=== PATIENT | female | born 1940 | race Caucasian/White ===

== ENCOUNTER 2017-01-25 15:56 | Inpatient (IN) | payer OTHER ==
[~2017-01-25] VITALS: Ht 148.6 cm; Wt 75.3 kg
[~2017-01-25 15:56] MED LIST: ALTACE2.5 MG PO; Ativan PO; Augmentin PO; CARDIZEM CD,CA240 M1 PO; CIPRO500 MG PO; CIPROFLOXACIN500 M1 PO; Cardizem CD,Cartia X PO; DILTIAZEM 24HR240 MG PO; FENOFIBRATE200 M1 PO; FENOFIBRATE200 MG PO; GLIPIZIDE5 M1 PO; GLIPIZIDE5 MG PO; GLUCOPHAGE1000 M1 PO; JANUVIA100 MG PO; LASIX20 MG PO; LASIX40 MG PO; Lasix PO; Lotrel 5/10 PO; MELOXICAM7.5 MG PO; METFORMIN HCL1000 MG PO; METOPROLOL TAR100 MG PO; NORVASC10 MG PO; OMEPRAZOLE40 M1 PO; PREDNISONE PO; PRILOSEC40 MG PO; Phenergan W/Codeine PO; SIMVASTATIN10 MG PO; Symbicort 160-4.5 mc IH; TOPROL XL50 MG PO; TRAMADOL HCL50 MG PO; Toprol XL PO; ULTRAM50 MG PO; VICODIN 5-3001 EACH PO; ZETIA10 MG PO; ZOFRAN4 MG PO
[2017-01-25 16:53] LABS: HEMATOCRIT 24.5 % (36.0-46.0); MCH 31.8 PG (29.0-34.0); MCHC 31.4 G/DL (30.0-36.0); MCV 101.2 FL (83-99); NRBC (%) 0.2 /100 WBC (0-0); PLATELET COUNT 140 K/uL (156-360); RBC DIS.WIDTH-CV 20.1 % (11.8-14.6); RBC DIS.WIDTH-SD 74.5 % (39-53); RED BLOOD COUNT 2.42 M/uL (3.80-5.20); WHITE BLOOD COUNT 9.4 K/uL (4.1-10.2)
[2017-01-25 17:03] LABS: CHLORIDE 103 mEq/L (99-109); POTASSIUM 3.5 mEq/L (3.7-5.4); SODIUM 138 mEq/L (136-147)
[2017-01-25 17:04] LABS: MAGNESIUM 1.5 mg/dL (1.3-2.7)
[2017-01-25 17:05] LABS: GLUCOSE 139 mg/dL (70-99)
[2017-01-25 17:07] LABS: ANION GAP 10 MEQ/L (2-14); TOTAL BILIRUBIN 0.7 mg/dL (0.0-1.0)
[2017-01-25 17:09] LABS: ALKALINE PHOSPHATASE 44 IU/L (3-129); GFR ESTIMATE (CALCULATED) > 59 mL/min/
[2017-01-25 17:10] LABS: UREA NITROGEN (BUN) 20 mg/dL (9-23)
[2017-01-25 17:14] LABS: TROP-I INTERPRETATION NEGATIVE; TROPONIN-I < 0.01 ng/mL (0.0-0.30)
[2017-01-25 17:49] LABS: ADD MIUA? YES; BILIRUBIN NEGATIVE; BLOOD SMALL; COLOR YELLOW ((YELLOW)); GLUCOSE (STRIP) NEGATIVE; KETONES NEGATIVE; LEUKOCYTES NEGATIVE; NITRITE NEGATIVE; PROTEIN (STRIP) >=500; SPECIFIC GRAVITY 1.012 (1.000-1.030); UROBILINOGEN 0.2 MG/DL (0.2-1.0)
[2017-01-25 17:55] LABS: BACTERIA RARE /HPF; EPITHELIAL CELLS RARE /HPF; HYALINE CASTS 0-5 /LPF; MUCUS NONE SEEN /LPF; RED BLOOD CELLS 0-5 /HPF (0-5); UCUL ADDED? NO; WHITE BLOOD CELLS 0-5 /HPF (0-5)
[2017-01-25 18:05] LABS: ABS NEUTROPHIL COUNT 5.2; ANISOCYTOSIS 2+; ATYPICAL LYMPHOCYTE 1.7 %; BAND NEUTROPHILS 0.9 % (0-8.0); EOSINOPHIL ABS CT 0; HYPOCHROMASIA 3+; INSTRUMENT ABS NEUTROPHIL CT 4.5 K/uL; LYMPHOCYTES 8.8 % (15.0-45.0); MACROCYTES 1+; METAMYELOCYTES 1.7 %; MICROCYTOSIS 1+; MYELOCYTES 0.9 %; NUCLEATED RBC'S 1.8; PLAT.SUFFICIENCY ADEQUATE; POIKILOCYTOSIS 1+; SEG.NEUTROPHILS 54.4 % (46.0-76.0); STOMATOCYTES 1+; TOX.VACUOLIZATION 1+
[2017-01-25] MEDS ORDERED: GLIPIZIDE ER2.5 MG PO (20:34)
[2017-01-25] MEDS ORDERED: COZAAR25 MG PO (20:34)
[2017-01-25] MEDS ORDERED: ERGOCALCIF50000 UNIT PO (20:34)
[2017-01-25] MEDS ORDERED: ALPRAZOLAM0.25 M2 PO (20:34)
[2017-01-25] MEDS ORDERED: MELOXICAM7.5 MG PO (20:35)
[2017-01-25 23:11] LABS: TROP-I INTERPRETATION NEGATIVE; TROPONIN-I 0.01 ng/mL (0.0-0.30)
[2017-01-26] VITALS (11 sets, daily range): BP systolic 122–159; BP diastolic 60–74
[2017-01-26 02:00] LABS: IRON 33 MCG/DL (35-150)
[2017-01-26 02:37] LABS: INTER. NORMALIZED RATIO 1.3; PROTHROMBIN TIME 14.6 SEC (10.2-12.9)
[2017-01-26 02:40] LABS: PTT 27.8 SEC (25-37)
[2017-01-26 05:47] LABS: TROP-I INTERPRETATION NEGATIVE; TROPONIN-I 0.03 ng/mL (0.0-0.30)
[2017-01-26 06:03] LABS: ANION GAP 9 MEQ/L (2-14); CHLORIDE 102 MEQ/L (99-109); GFR ESTIMATE (CALCULATED) > 59 mL/min/; IRON 36 MCG/DL (35-150); POTASSIUM 4.2 MEQ/L (3.7-5.4); SAMPLE HEMOLYSIS CHECK 0; SAMPLE ICTERIC CHECK 0; SAMPLE LIPEMIA CHECK 0; SODIUM 140 MEQ/L (136-147); UREA NITROGEN (BUN) 20 mg/dL (9-23)
[2017-01-26 06:04] LABS: GLUCOSE 223 mg/dL (70-99)
[2017-01-26 07:31] LABS: POINT-OF-CARE METER ID UU14314088
[2017-01-26 09:02] LABS: FERRITIN 82 NG/ML (10-291)
[2017-01-26 10:15] LABS: HEMATOCRIT 29.5 % (36.0-46.0); INTER. NORMALIZED RATIO 1.3; MCH 31.2 PG (29.0-34.0); MCHC 31.5 G/DL (30.0-36.0); MEAN PLAT.VOLUME 9.8 uM^3 (9.5-12.4); NRBC (%) 0.3 /100 WBC (0-0); PROTHROMBIN TIME 14.4 SEC (10.2-12.9); WHITE BLOOD COUNT 10.6 K/uL (4.1-10.2)
[2017-01-26 10:19] LABS: PTT 45.3 SEC (25-37)
[2017-01-26 10:26] LABS: PLATELET COUNT 188 K/uL (156-360); RED BLOOD COUNT 2.98 M/uL (3.80-5.20)
[2017-01-26 11:13] LABS: POINT-OF-CARE METER ID UU14314088
[2017-01-26 16:37] LABS: POINT-OF-CARE METER ID UU14314088
[2017-01-26 20:53] LABS: POINT-OF-CARE METER ID UU14314088
[2017-01-27 03:47] VITALS: BP 142/76
[2017-01-27 05:26] LABS: HEMATOCRIT 27.8 % (36.0-46.0); MCHC 31.3 G/DL (30.0-36.0); MCV 98.9 FL (83-99); MEAN PLAT.VOLUME 10.1 uM^3 (9.5-12.4); NRBC (%) 0.1 /100 WBC (0-0); PLATELET COUNT 178 K/uL (156-360); RBC DIS.WIDTH-CV 20.8 % (11.8-14.6); RBC DIS.WIDTH-SD 74.6 % (39-53); RED BLOOD COUNT 2.81 M/uL (3.80-5.20); WHITE BLOOD COUNT 19.4 K/uL (4.1-10.2)
[2017-01-27 06:11] LABS: ANION GAP 9 MEQ/L (2-14); CHLORIDE 98 MEQ/L (99-109); GFR ESTIMATE (CALCULATED) > 59 mL/min/; GLUCOSE 231 mg/dL (70-99); POTASSIUM 4.3 MEQ/L (3.7-5.4); SAMPLE HEMOLYSIS CHECK 0; SAMPLE ICTERIC CHECK 0; SAMPLE LIPEMIA CHECK 0; SODIUM 137 MEQ/L (136-147); UREA NITROGEN (BUN) 35 mg/dL (9-23)
[2017-01-27 06:22] LABS: ABS NEUTROPHIL COUNT 16.8; ANISOCYTOSIS 1+; BAND NEUTROPHILS 0.9 % (0-8.0); EOSINOPHIL ABS CT 0; HYPOCHROMASIA 2+; INSTRUMENT ABS NEUTROPHIL CT 14.6 K/uL; LYMPHOCYTES 1.8 % (15.0-45.0); MACROCYTES 2+; METAMYELOCYTES 0.9 %; PLAT.SUFFICIENCY ADEQUATE; POLYCHROMASIA 1+; STOMATOCYTES 1+; TARGET CELLS 1+; TEAR DROP CELLS 1+
[2017-01-27 06:27] LABS: SEG.NEUTROPHILS 85.8 % (46.0-76.0)
[2017-01-27 07:40] VITALS: BP 139/67
[2017-01-27 07:59] LABS: POINT-OF-CARE METER ID UU13113781
[2017-01-27 10:59] VITALS: BP 170/68
[2017-01-27 11:39] LABS: POINT-OF-CARE METER ID UU13113781
[2017-01-27] MEDS ORDERED: LOSARTAN POTASS50 MG PO (13:14)
[2017-01-27] MEDS ORDERED: FERROUS SULFAT325 MG PO (13:15)
[2017-01-27] MEDS ORDERED: FOLIC ACID-VIT1 EACH PO (13:28)
== END 2017-01-27 15:12 | disposition home or self-care (01) | DRG 192 ==
LOC: EME 15:56 → 4EAST 21:31 → EDOF 21:31 → ENRESERV 21:33 → CANRESERV 21:33 → ENRESERV 21:43 → EDOF 22:52 → ENRESERV 22:57 → 4EAST 01-26 01:15
PROVIDERS: Emergency Medicine; Hospitalist; Student in an Organized Health Care Education/Training Program
PROC: 30233N1 Transfusion of Nonautologous Red Blood Cells into Peripheral Vein, Percutaneous Approach (ICD-10-PCS; principal; 2017-01-26)
DX: J44.1 Chronic obstructive pulmonary disease with (acute) exacerbation (principal); I50.9 Heart failure, unspecified; D50.9 Iron deficiency anemia, unspecified; I48.91 Unspecified atrial fibrillation; I11.0 Hypertensive heart disease with heart failure; R91.8 Other nonspecific abnormal finding of lung field; E11.9 Type 2 diabetes mellitus without complications; K21.9 Gastro-esophageal reflux disease without esophagitis; E78.5 Hyperlipidemia, unspecified; M19.90 Unspecified osteoarthritis, unspecified site; E87.6 Hypokalemia; R09.02 Hypoxemia; Z68.32 Body mass index [BMI] 32.0-32.9, adult; Z80.6 Family history of leukemia; Z87.891 Personal history of nicotine dependence; Z86.19 Personal history of other infectious and parasitic diseases; Z83.3 Family history of diabetes mellitus
CPT/HCPCS: 71020; 71275; 80048; 80053; 81003; 82607; 82728; 82746; 82948; 83090 90; 83540; 83735; 83880; 83921 90; 84443; 84466; 84484; 85025; 85027; 85610; 85730; 86850; 86900; 86901; 86920; 87077; 87086; 87186; 90686; 93005; 94640; 99202; 99281; 99285; J1815; J1940; J2920; J2930; P9016

== ENCOUNTER → 2017-06-24 | Outpatient (CLI) | payer OTHER ==
[~2017-06-24] MED LIST changes: +ALPRAZOLAM0.25 M2 PO; +B-12 COMPL1000 MCG/1 IM; +COZAAR25 MG PO; +ERGOCALCIF50000 UNIT PO; +FERROUS SULFAT325 MG PO; +FOLIC ACID-VIT1 EACH PO; +GLIPIZIDE ER2.5 MG PO; +LOSARTAN POTASS50 MG PO
== END | disposition home or self-care (01) ==
LOC: RAD 11:41
DX: M47.9 Spondylosis, unspecified (principal); M17.0 Bilateral primary osteoarthritis of knee; M16.0 Bilateral primary osteoarthritis of hip; R91.8 Other nonspecific abnormal finding of lung field
CPT/HCPCS: 77075

== ENCOUNTER → 2017-08-15 | Day surgery (SDC) | payer OTHER ==
[~2017-08-15] VITALS: Ht 149.9 cm; Wt 69.0 kg
[~2017-08-15] MED LIST changes: +FEOSOL325 MG PO
[2017-08-15 13:16] VITALS: BP 185/78
[2017-08-15 13:16] LABS: INTER. NORMALIZED RATIO 1.2
[2017-08-15 13:19] LABS: PTT 29.3 SEC (25-37)
== END | disposition home or self-care (01) ==
LOC: SDC 11:31
PROVIDERS: Thoracic Surgery (Cardiothoracic Vascular Surgery)
PROC: 07JNXZZ Inspection of Lymphatic, External Approach (ICD-10-PCS; principal; 2017-08-15)
DX: R59.0 Localized enlarged lymph nodes (principal); C90.00 Multiple myeloma not having achieved remission; D64.9 Anemia, unspecified; Z53.09 Procedure and treatment not carried out because of other contraindication
CPT/HCPCS: 82948; 85610; 85730; 86850; 86900; 86901

== ENCOUNTER 2017-08-23 10:35 | Day surgery (SDC) | payer OTHER ==
[~2017-08-23] VITALS: Ht 149.9 cm; Wt 69.4 kg
[~2017-08-23 10:35] MED LIST changes: +CYANOCOBAL1000 MCG/2 IM; +MOBIC7.5 MG PO
[2017-08-23 11:20] VITALS: BP 154/75
[2017-08-23 11:21] LABS: INTER. NORMALIZED RATIO 1.2
[2017-08-23 11:23] LABS: PTT 28.3 SEC (25-37)
[2017-08-23] MEDS ORDERED: NORCO 5/3251 TABLET PO (14:58)
[2017-08-23] MEDS ORDERED: COLACE100 MG PO (14:58)
[2017-08-23 15:30] VITALS: BP 152/67
[2017-08-23 16:19] VITALS: BP 152/67
== END 2017-08-23 16:45 | disposition home or self-care (01) ==
LOC: SDC 10:35
PROVIDERS: Thoracic Surgery (Cardiothoracic Vascular Surgery)
PROC: 07B74ZX Excision of Thorax Lymphatic, Percutaneous Endoscopic Approach, Diagnostic (ICD-10-PCS; principal; 2017-08-23)
DX: R59.0 Localized enlarged lymph nodes (principal); C90.00 Multiple myeloma not having achieved remission; R63.4 Abnormal weight loss; R07.9 Chest pain, unspecified; R00.2 Palpitations; Z87.891 Personal history of nicotine dependence; D64.9 Anemia, unspecified; E11.9 Type 2 diabetes mellitus without complications; E78.5 Hyperlipidemia, unspecified; I10 Essential (primary) hypertension; I48.0 Paroxysmal atrial fibrillation; E07.9 Disorder of thyroid, unspecified; M19.90 Unspecified osteoarthritis, unspecified site; Z90.710 Acquired absence of both cervix and uterus; Z80.1 Family history of malignant neoplasm of trachea, bronchus and lung; Z80.0 Family history of malignant neoplasm of digestive organs; Z82.49 Family history of ischemic heart disease and other diseases of the circulatory system; Z80.6 Family history of leukemia; Z83.3 Family history of diabetes mellitus; Z87.01 Personal history of pneumonia (recurrent); Z87.440 Personal history of urinary (tract) infections; Z79.84 Long term (current) use of oral hypoglycemic drugs; Z88.8 Allergy status to other drugs, medicaments and biological substances
CPT/HCPCS: 82948; 85610; 85730; 86850; 86900; 86901; 88305; 88312; J0690; J1100; J2405; J2710; J3010; J7643

== ENCOUNTER 2017-10-04 13:37 | Emergency (ER) | payer OTHER ==
[~2017-10-04] VITALS: Ht 147.3 cm; Wt 68.1 kg
[~2017-10-04 13:37] MED LIST changes: +BYSTOLIC5 MG PO; +COLACE100 MG PO; +CRESTOR20 MG PO; +DIOVAN320 MG PO; +MELOXICAM15 MG PO; +NORCO 5/3251 TABLET PO; +PROZAC20 MG PO; +SYNTHROID50 MCG PO; +TRESIBA FL100 UNIT/1 SC; +TYLENOL WITH C1 EACH PO
[2017-10-04 14:52] LABS: HEMATOCRIT 26.5 % (36.0-46.0); HEMOGLOBIN 8.8 G/DL (11.9-15.5); MCH 31.9 PG (29.0-34.0); MCHC 33.2 G/DL (30.0-36.0); PLATELET COUNT 162 K/uL (156-360); RBC DIS.WIDTH-CV 18.4 % (11.8-14.6); RBC DIS.WIDTH-SD 63.7 % (39-53); RED BLOOD COUNT 2.76 M/uL (3.80-5.20); WHITE BLOOD COUNT 13.4 K/uL (4.1-10.2)
[2017-10-04 15:11] LABS: TROP-I INTERPRETATION NEGATIVE; TROPONIN-I < 0.01 ng/mL (0.0-0.30)
[2017-10-04 15:37] LABS: CHLORIDE 99 MEQ/L (99-109); POTASSIUM 3.9 MEQ/L (3.7-5.4); SODIUM 135 MEQ/L (136-147)
[2017-10-04 15:42] LABS: CREATININE 0.7 MG/DL (0.6-1.3); GFR ESTIMATE (CALCULATED) > 59 mL/min/; GLUCOSE 92 mg/dL (70-99); UREA NITROGEN (BUN) 15 mg/dL (9-23)
[2017-10-04] MEDS ORDERED: DOXYCYCLINE HY100 MG PO (17:31)
[2017-10-04] MEDS ORDERED: PREDNISONE50 MG PO (17:31)
[2017-10-04 18:00] VITALS: BP 143/60
== END 2017-10-04 18:03 | disposition home or self-care (01) ==
LOC: EME 13:37
PROVIDERS: Emergency Medicine
DX: J44.0 Chronic obstructive pulmonary disease with (acute) lower respiratory infection (principal); J18.9 Pneumonia, unspecified organism; R51 Headache; E11.9 Type 2 diabetes mellitus without complications; E78.5 Hyperlipidemia, unspecified; K21.9 Gastro-esophageal reflux disease without esophagitis; F41.9 Anxiety disorder, unspecified; Z87.891 Personal history of nicotine dependence; Z85.9 Personal history of malignant neoplasm, unspecified; Z88.8 Allergy status to other drugs, medicaments and biological substances
CPT/HCPCS: 70450; 71046; 80048; 82948; 84484; 85027; 93005; 94640; 99281; 99285; J1885; J7512